=== PATIENT | female | born 1990 | race Caucasian/White ===

== ENCOUNTER → 2024-06-28 | Outpatient (CLI) | payer OTHER, SELFPAY ==
[2024-06-28 11:34] LABS: Misc Send Out* See Sep Rpt
[2024-06-28 12:29] LABS: Basophils # (Auto) 0.1 Thou/mm3 (0.0-0.2); Basophils % (Auto) 1 % (0-2.5); Eosinophils # (Auto) 0.1 Thou/mm3 (0.0-0.5); Eosinophils % (Auto) 1 % (0-10); Hematocrit 40.7 % (36.0-46.0); Hemoglobin 12.5 g/dL (12.0-16.0); Immature Granulocytes % (Auto) 0 % (0-0); Immature Granulocytes Auto 0.03 Thou/mm3 (0.00-0.00); Lymphocytes # (Auto) 2.3 Thou/mm3 (1.0-4.8); Lymphocytes % (Auto) 26 % (10-50); Mean Corpuscular HGB Conc 30.7 g/dl (31.0-37.0); Mean Corpuscular Hemoglobin 18.3 pg (25.0-35.0); Mean Corpuscular Volume 60 fL (80-100); Monocytes # (Auto) 0.6 Thou/mm3 (0.0-0.8); Monocytes % (Auto) 7 % (0-12); Neutrophils # (Auto) 5.8 Thou/mm3 (1.8-7.7); Neutrophils % (Auto) 65 % (37-80); Nucleated Red Blood Cell % 0 /100 WBC (0); Platelet Count 385 Thou/mm3 (140-440); RDW Standard Deviation 34.3 fL (36.4-46.3); Red Blood Count 6.82 Miln/mm3 (4.00-5.20); White Blood Count 8.9 Thou/mm3 (3.6-11.0)
[2024-06-28 12:41] LABS: Folate 15.19 ng/mL (>5.38); Vitamin B12 409 pg/mL (211-911)
[2024-06-28 13:01] LABS: Ferritin 41 ng/mL (7.3-270.7); Total Iron Binding Capacity 364 mcg/dL (250-425)
[2024-06-28 13:12] LABS: Iron 58 mcg/dL (50-170); Percent Iron Saturation 15 % (20-55); Unsaturated Iron Binding 306 (225-295)
[2024-06-28 18:14] LABS: RA Screen Negative (Negative)
[2024-07-04 06:47] LABS: PTT-LA Screen 30 seconds (< OR = 40)
[2024-07-04 06:48] LABS: dRVVT Screen 35 seconds (< OR = 45)
[2024-07-11 11:18] LABS: Immunoglobulin A 292 mg/dL (47-310); Immunoglobulin G 920 mg/dL (600-1640)
[2024-07-12 06:14] LABS: ANA Pattern NUCLEAR, NUCLEOLAR; ANA Screen, IFA POSITIVE (NEGATIVE); ANA Titer 1:40 titer; Immunoglobulin M 133 mg/dL (50-300)
== END | disposition home or self-care (01) ==
LOC: SCTO 11:07
PROVIDERS: PCP Internal Medicine; Referring Provider Internal Medicine Hematology & Oncology; Visit Provider Internal Medicine Hematology & Oncology
DX: D75.9 Disease of blood and blood-forming organs, unspecified (principal)
CPT/HCPCS: 36415; 82607; 82728; 82746; 82784; 83020; 83540; 83550; 85014; 85018; 85025; 85041; 85613; 85730; 86038; 86039; 86430

== ENCOUNTER 2024-07-18 14:47 | Outpatient (RCR) | payer OTHER, SELFPAY ==
--- NOTE | 2024-07-04 17:19 | CTCCONSULT_ITS ---
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 Patient wa s diagnosed with a diabetes and started on Mounjaro. Patient also have depression and bipolar disord er. Patient also have chronic pain condition which she attributes to lupus and requesting referral t o pain management. Patient on vitamin B and D supplements. Patient have anxiety and ADHD. No family history of thalassemia. She also have EDS. No family history of similar disease. 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 - No Nipple discharge - No Gynecological Note - LAST PAP IN [place] 2 YEARS AGO Gynecological Note 2 - 1 MISCARRIAGE IN 2016 MEDICATIONS: Mounjaro [tirzepatide] AdderalL [dextroamphetamine sulf-saccharate/amphetamine sulf-aspartate] naproxen Vitamin D2 [ergocalciferol (vitamin d2)] ALLERGIES: No Known Allergies REVIEW OF SYSTEMS PATIENT FINANCIAL SPECIALIST: No headache, seizures or blurring of vision. GI: No nausea, vomiting, diarrhea or constipation. CVS: No palpitations or angina pains. Respiratory: No cough, chest pain or shortness of breath. VITAL SIGNS: Date 06/28/2024 Time 9:32 AM Vital Signs, Weight and PS ? ??T (F) (F) 98.7 ??P 107 ??B/P (mmHg) 152/91 ??Height (in) (inch) 74 ??Weight (lb) (lb) 210 ??BSA(D) (m*2) 2.22 PHYSICAL EXAMINATION: Conjunctivae is white. Oral cavity is dry. Chest is clear to auscultation. No wheezes or rales audible. CVS: Rhythm regular, no murmurs or gallops present. Abdomen is soft. No hepatosplenomegaly. Extremities: No pedal edema or cyanosis. LABORATORY DATA: Date 06/28/2024 Time 11:30 AM CBC ? ??RED BLOOD COUNT (Miln/mm3) [C] 6.82 H ??MCV (MEAN CORPUSCULAR VOL) (fl) [C] 60 L ??MCH (MEAN CORPUSCULAR HGB) (pg) [C] 18.3 L ??MCHC (MEAN CORPSCULR HGB CONC) (gm/dl) [C] 30.7 L ??RDW (RBC DISTRIBUTION WDTH) SD (fl) [C] 34.3 L ??IMMATURE GRANULOCYTES, AUTO (Thou/mm3) . 0.03 H Additional Labs ? ??UNBOUND IBC (mcg/dL) 306 H ? ??Initials ZZZ Other Labs ? ??Percent Iron Saturation (%) 15 L ASSESSMENT: Blood dyscrasias PLAN: ??Ordered blood labs including hemoglobin electrophoresis Follow-up on the labs in 2 to 3 weeks Will get MRI of the brain with contrast as patient is having multiple episodes of headache and nausea Also referral placed to pain management ORDERS: Comprehensive Metabolic Panel - 12 + CBC with Auto Diff + MD Follow Up 2 Week Iron Panel + Ferritin + Vitamin B-12 + Folic Acid; Serum Hemoglobin Electrophoresis MRI + With Contrast + Brain Quant Immunoglobulins HUDSON - Antinuclear Antibody + Lupus anticoagulant panel + Rheumatoid Factor RETURN TO CLINIC: cc: Jarett Flynn, Referring: Josefa Flynn Electronically Signed {Object.Sanct_Date} at {Object.Sanct_Time} {Object.Sanct_ID*PnP.NameFL@M}, {Object.Sanct_ID*PnP.Suffix@U} Patient: SUKHI BUI : 1990 MR#: [id number] Account: [id number] FOLLOW UP NOTE Page 4 of 4
== END 2024-07-22 23:59 | disposition home or self-care (01) ==
LOC: SCTC 14:47
PROVIDERS: PCP Nurse Practitioner Family; Referring Provider Nurse Practitioner Family; Visit Provider Radiology Therapeutic Radiology
DX: D75.9 Disease of blood and blood-forming organs, unspecified (principal); E11.9 Type 2 diabetes mellitus without complications; F31.9 Bipolar disorder, unspecified; F41.9 Anxiety disorder, unspecified; F90.9 Attention-deficit hyperactivity disorder, unspecified type; R51.9 Headache, unspecified; R42 Dizziness and giddiness
CPT/HCPCS: 99212; 99213; G0463

== ENCOUNTER → 2024-08-03 | Outpatient (CLI) | payer OTHER, SELFPAY ==
[2024-08-02 08:42] LABS: HCG Qualitative,Urine Negative
--- NOTE | 2024-08-03 07:30 | XR_ITS ---
Examination: MRI brain with intravenous contrast Technique: Multiple axial sagittal coronal brain MRI images post intravenous administration 19 cc gadolinium Indications: Disease of blood and blood forming organisms, unspecified, multiple falls and dizziness over the last year with headaches and balance issues altered mental status Exam date and time: August 03, 2024 0734 hrs. Findings: Ventricles are normal in size and configuration No mass effect upon the ventricular system No effacement cortical sulcal markings No abnormal enhancing cerebellar or cerebral lesions Pituitary is not enlarged Normal position cerebellar tonsils No displacement of the optic chiasm Impression: No abnormal enhancing cerebellar or cerebral lesions
== END | disposition home or self-care (01) ==
LOC: SMRI 06:59
PROVIDERS: PCP Internal Medicine; Referring Provider Internal Medicine Hematology & Oncology; Visit Provider Internal Medicine Hematology & Oncology
DX: D75.9 Disease of blood and blood-forming organs, unspecified (principal); Z32.00 Encounter for pregnancy test, result unknown
CPT/HCPCS: 70552; 81025; A9579

== ENCOUNTER 2024-08-21 10:53 | Outpatient (RCR) | payer OTHER, SELFPAY ==
--- NOTE | 2024-08-20 23:21 | CTCFLWUP_ITS ---
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 Patient wa s diagnosed with a diabetes and started on Mounjaro. Patient also have depression and bipolar disord er. Patient also have chronic pain condition which she attributes to lupus and requesting referral t o pain management. Patient on vitamin B and D supplements. Patient have anxiety and ADHD. No family history of thalassemia. She also have EDS. No family history of similar disease. 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 - No Nipple discharge - No Gynecological Note - LAST PAP IN [place] 2 YEARS AGO Gynecological Note 2 - 1 MISCARRIAGE IN 2016 MEDICATIONS: 1. AdderalL - 30 mg 1 tab Daily 2. hydrocodone-acetaminophen - 5-325 mg 1 tab q6 3. Mounjaro - 12.5 mg/0.5 mL Weekly 4. naproxen - 500 mg 1 tab As needed 5. Vitamin D2 - 1,000 unit 1 Capsule Daily Medications Last Reconciled by Tania Breaux MA on 08/02/2024 ALLERGIES: No Known Allergies REVIEW OF SYSTEMS: A complete 14-point review of systems was performed and is negative except as noted in interval histo ry. PHYSICAL EXAMINATION: VITAL SIGNS: Temperature?98, B/P?132/96, Oxygen?Saturation?100% Weight?214?lbs (Change?since?07/18/24 :?-1?lbs) PAIN: 7 - Between severe and very severe pain ECOG Performance Status: 0 - Asymptomatic and fully active GENERAL APPEARANCE: Appears well, in no apparent distress, appropriately interactive. HEENT: Normocephalic, no temporal wasting, normal conjunctiva, no scleral icterus, normal hearing, li ps without lesions, neck normal range of motion. CARDIOVASCULAR: Not assessed. PULMONARY: Normal respiratory effort, no respiratory distress or use of accessory muscles, speaking i n full sentences, no tachypnea. EXTREMITIES: No pedal edema or cyanosis. SKIN: Normal skin appearance. NEUROLOGIC: Alert and oriented x4. PSHYCHIATRIC: Appropriate affect, mood normal, behavior normal, intact thought and speech. LABORATORY DATA: I have personally reviewed and interpreted each of the patient?s relevant lab tests, abnormal finding s are below: Date 06/28/24 ??WHITE?BLOOD?COUNT?(Thou/mm3) 8.9 ??RED?BLOOD?COUNT?(Miln/mm3) 6.82?H ??HEMOGLOBIN?(gm/dl) 12.5 ??HEMATOCRIT?(%) 40.7 ??PLATELET?COUNT?(Thou/mm3) 385 ??NEUTROPHILS?%,?AUTO?(%) 65 ??LYMPH?%,?AUTO?(%) 26 ??NEUTROPHILS,?AUTO?(Thou/mm3) 5.8 ASSESSMENT/PLAN: Blood dyscrasias ??Ordered blood labs including hemoglobin electrophoresis Follow-up on the labs in 2 to 3 weeks MRI brain negative for any cerebellar or cerebral disease Follows with Dr. Ventura for her pain management Patient do not have results of hemoglobin after pheresis HUDSON was positive Patient have multifactorial symptoms and will refer to rheumatology to evaluate for SLE CBC CMP RETURN TO CLINIC: Get results for hemoglobin electrophoresis and RTC in 4 weeks BILLING AND COMPLIANCE: I reviewed external records from providers outside my specialty as summarized above. I spent a total of 50 minutes on this patient?s care on the day of their visit excluding time spent related to any bi lled procedures. This time includes time spent with the patient as well as time spent documenting in the medical record, reviewing patients records and tests, obtaining history, placing orders, communi cating with other healthcare professionals, counseling the patient, family or caregiver, and/or care coordination for the diagnoses above. Electronically Signed by: Aman Ernandez MD T: 11:19 PM CC: Josefa?Gee,? PCP: Lupe Hartley Referring: Josefa Flynn This document was completed utilizing speech recognition software. Grammatical errors, random word in sertions, pronoun errors, and incomplete sentences are an occasional consequence of this system due t o software limitations, ambient noise, and hardware issues. Any formal questions or concerns about th e content, text or information contained within the body of this dictation should be directly address ed to the provider for clarification.
--- NOTE | 2024-08-21 15:40 | CTCFLWUP_ITS ---
Patient: SUKHI BUI : 1990 Page 2 of 2 FOLLOW UP NOTE DATE OF SERVICE: 08/21/2024 NAME: SUKHI BUI ACCOUNT: [id number] : 1990 AGE: 34 INTERVAL HISTORY: Cont to have pain in back . Patient states she is recently diagnosed with more issues in her bones in the lower part of the spine. Patient have not seen supervisor color paste mixing. Patient have not completed he moglobin extra pheresis. Patient is concerned that her bones may be weak. She always gets very achy and have been after walking for few minutes. She has been off work and feel more well rested and has been sleeping better. Patient is also very h appy that she was able to see Dr. Ventura for pain management. 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 Patient wa s diagnosed with a diabetes and started on Mounjaro. Patient also have depression and bipolar disord er. Patient also have chronic pain condition which she attributes to lupus and requesting referral t o pain management. Patient on vitamin B and D supplements. Patient have anxiety and ADHD. No family history of thalassemia. She also have EDS. No family history of similar disease. 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 - No Nipple discharge - No Gynecological Note - LAST PAP IN [place] 2 YEARS AGO Gynecological Note 2 - 1 MISCARRIAGE IN 2016 MEDICATIONS: 1. AdderalL - 30 mg 1 tab Daily 2. hydrocodone-acetaminophen - 5-325 mg 1 tab q6 3. Mounjaro - 12.5 mg/0.5 mL Weekly 4. naproxen - 500 mg 1 tab As needed 5. Vitamin D2 - 1,000 unit 1 Capsule Daily Medications Last Reconciled by Crystal Mott MA on 08/21/2024 ALLERGIES: No Known Allergies REVIEW OF SYSTEMS: A complete 14-point review of systems was performed and is negative except as noted in interval histo ry. PHYSICAL EXAMINATION: VITAL SIGNS: Temperature?98.1, B/P?134/97, Oxygen?Saturation?99% Weight?221?lbs (Change?since? 4:?7?lbs) PAIN: 0 - No pain ECOG Performance Status: 1 - Symptomatic; ambulatory; restricted in strenuous activity GENERAL APPEARANCE: Appears well, in no apparent distress, appropriately interactive. HEENT: Normocephalic, no temporal wasting, normal conjunctiva, no scleral icterus, normal hearing, li ps without lesions, neck normal range of motion. CARDIOVASCULAR: Not assessed. PULMONARY: Normal respiratory effort, no respiratory distress or use of accessory muscles, speaking i n full sentences, no tachypnea. EXTREMITIES: No pedal edema or cyanosis. SKIN: Normal skin appearance. NEUROLOGIC: Alert and oriented x4. PSHYCHIATRIC: Appropriate affect, mood normal, behavior normal, intact thought and speech. LABORATORY DATA: I have personally reviewed and interpreted each of the patient?s relevant lab tests, abnormal finding s are below: Date 06/28/24 ??WHITE?BLOOD?COUNT?(Thou/mm3) 8.9 ??RED?BLOOD?COUNT?(Miln/mm3) 6.82?H ??HEMOGLOBIN?(gm/dl) 12.5 ??HEMATOCRIT?(%) 40.7 ??PLATELET?COUNT?(Thou/mm3) 385 ??NEUTROPHILS?%,?AUTO?(%) 65 ??LYMPH?%,?AUTO?(%) 26 ??NEUTROPHILS,?AUTO?(Thou/mm3) 5.8 ASSESSMENT/PLAN: Blood dyscrasias ??Ordered blood labs including hemoglobin electrophoresis and advised patient to complete them Follow-up on the labs in 2 to 3 weeks MRI brain negative for any cerebellar or cerebral disease Follows with Dr. Ventura for her pain management Patient do not have results of hemoglobin after pheresis HUDSON was positive Patient have multifactorial symptoms and will refer to rheumatology to evaluate for SLE CBC CMP CBC CMP bone density scan RETURN TO CLINIC: I will see her back in the clinic in 3 months. BILLING AND COMPLIANCE: I reviewed external records from providers outside my specialty as summarized above. I spent a total of 50 minutes on this patient?s care on the day of their visit excluding time spent related to any bi lled procedures. This time includes time spent with the patient as well as time spent documenting in the medical record, reviewing patients records and tests, obtaining history, placing orders, communi cating with other healthcare professionals, counseling the patient, family or caregiver, and/or care coordination for the diagnoses above. Electronically Signed by: Aman Ernandez MD T: 3:38 PM CC: Josefa?Gee,? PCP: Lupe Hartley Referring: Lupe Hartley This document was completed utilizing speech recognition software. Grammatical errors, random word in sertions, pronoun errors, and incomplete sentences are an occasional consequence of this system due t o software limitations, ambient noise, and hardware issues. Any formal questions or concerns about th e content, text or information contained within the body of this dictation should be directly address ed to the provider for clarification.
== END 2024-08-22 23:59 | disposition home or self-care (01) ==
LOC: SCTC 10:53
PROVIDERS: PCP Internal Medicine; Referring Provider Internal Medicine; Visit Provider Internal Medicine Hematology & Oncology
DX: D75.9 Disease of blood and blood-forming organs, unspecified (principal); M54.9 Dorsalgia, unspecified; E11.9 Type 2 diabetes mellitus without complications; Z79.85 Long-term (current) use of injectable non-insulin antidiabetic drugs; F31.9 Bipolar disorder, unspecified
CPT/HCPCS: 99212; Q3014; G0463

== ENCOUNTER → 2024-09-29 | Outpatient (CLI) | payer OTHER, SELFPAY ==
--- NOTE | 2024-09-29 14:30 | XR_ITS ---
Examination: Bone densitometry Date and time of exam:September 29, 2024 1501 hours INDICATIONS: Premenopausal, vitamin D 3 years, diabetic Technique: Lumbar spine and hip total bone mineralization values of an calculated. Peak reference and age match control results have been displayed. Findings: Lumbar spine total bone mineralization is1.144 gm/cm2. This is 0.9 standard deviations above peak reference. This is 0.9 standard deviations above age-matched controls. Hip total bone mineralization is 0.849 gm/cm2 This is 0.8 standard deviations below peak reference. This is a 7 standard deviations below age-matched controls Impression: There is normal mineralization based on lumbar spine measurements. There is osteopenia based on hip measurements
== END | disposition home or self-care (01) ==
LOC: CDIM 14:39
PROVIDERS: Referring Provider Internal Medicine Hematology & Oncology; Visit Provider Internal Medicine Hematology & Oncology
DX: M85.88 Other specified disorders of bone density and structure, other site (principal)
CPT/HCPCS: 77080

== ENCOUNTER 2024-10-19 15:09 | Outpatient (RCR) | payer OTHER, SELFPAY ==
--- NOTE | 2024-10-18 15:47 | CTCFLWUP_ITS ---
[facility] [address] [place], [place] [address] FOLLOW-UP NOTE Date: 10/18/2024 MR#: [id number] Name: SUKHI BUI : 1990 Dx: D75.9 Disease of blood and blood-forming organs, unspecified Identification. Patient with blood dyscrasia being followed by Dr. Ernandez seamer elastic band. Also has chronic pain in her bones in the lower part of her spine. Other comorbidities diabetes type 2 ADHD beta thalassemia diverticulosis multiple synostosis bilateral foot surgery at 15 years and ear surgeries in [place]. Most recently had MRI of the brain which was negative. 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 Currently on [place] 5 every 6 as needed but takes it sparingly. Unable to take NSAIDs due to GI toxicity and OTC meds ineffective. Patient takes [place] Sur only 1 tablet a day, and in fact ran out without calling for refill 3 weeks ago. Told her that we can renew this as she is taking this sparingly. Cures website checked; side effects discussed. Electronically signed by: Scottie Ventura M.D. 10/18/2024 3:45 PM
--- NOTE | 2024-10-23 00:09 | CTCFLWUP_ITS ---
Patient: SUKHI BUI : 1990 Page 2 of 3 FOLLOW UP NOTE DATE OF SERVICE: 10/19/2024 NAME: SUKHI BUI ACCOUNT: [id number] : 1990 AGE: 34 INTERVAL HISTORY: Patient is very happy with her care overall. Her pain is well-controlled patient have not seen fourth hand. Patient have not completed hemoglobin extra pheresis. Patient is concerned that her bones may be weak. She always gets very achy and have been after walking for few minutes. She has been off work and feel more well rested and has been sleeping better. 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 Patient was diagnosed with a diabetes and started on Mounjaro. Patient also have depression and bipolar disorder. Patient also have chronic pain condition which she attributes to lupus and requesting referral to pain management. Patient on vitamin B and D supplements. Patient have anxiety and ADHD. No family history of thalassemia. She also have EDS. No family history of similar disease. 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 - No Nipple discharge - No Gynecological Note - LAST PAP IN [place] 2 YEARS AGO Gynecological Note 2 - 1 MISCARRIAGE IN 2016 MEDICATIONS: 1. AdderalL - 30 mg 1 tab Daily 2. alendronate - 70 mg Weekly 3. alendronate - 70 mg 1 tab weekly 4. hydrocodone-acetaminophen - 5-325 mg 1 tab twice a day 5. Mounjaro - 12.5 mg/0.5 mL Weekly 6. naproxen - 500 mg 1 tab As needed 7. Vitamin D2 - 1,000 unit 1 Capsule Daily?Palabra Meds? Medications Last Reconciled by Crystal Mott MA on 10/19/2024 ALLERGIES: No Known Allergies REVIEW OF SYSTEMS: A complete 14-point review of systems was performed and is negative except as noted in interval history. PHYSICAL EXAMINATION:?Saul PE? VITAL SIGNS: Temperature?97.6, B/P?119/83, Oxygen?Saturation?100% Weight?212?lbs (Change?since?10/18/24:?-3?lbs) PAIN: 0 - No pain GENERAL APPEARANCE: Appears well, in no apparent distress, appropriately interactive. HEENT: Normocephalic, no temporal wasting, normal conjunctiva, no scleral icterus, normal hearing, lips without lesions, neck normal range of motion. CARDIOVASCULAR: Not assessed. PULMONARY: Normal respiratory effort, no respiratory distress or use of accessory muscles, speaking in full sentences, no tachypnea. EXTREMITIES: No pedal edema or cyanosis. SKIN: Normal skin appearance. NEUROLOGIC: Alert and oriented x4. PSHYCHIATRIC: Appropriate affect, mood normal, behavior normal, intact thought and speech. LABORATORY DATA: I have personally reviewed and interpreted each of the patient?s relevant lab tests, abnormal findings are below: Date 06/28/24 ??WHITE?BLOOD?COUNT?(Thou/mm3) 8.9 ??RED?BLOOD?COUNT?(Miln/mm3) 6.82?H ??HEMOGLOBIN?(gm/dl) 12.5 ??HEMATOCRIT?(%) 40.7 ??PLATELET?COUNT?(Thou/mm3) 385 ??NEUTROPHILS?%,?AUTO?(%) 65 ??LYMPH?%,?AUTO?(%) 26 ??NEUTROPHILS,?AUTO?(Thou/mm3) 5.8 ASSESSMENT/PLAN:?Sual Ernandez Assessment/Plan? Blood dyscrasias ??Ordered blood labs including hemoglobin electrophoresis and advised patient to complete them Follow-up on the labs in 2 to 3 weeks MRI brain negative for any cerebellar or cerebral disease Follows with Dr. Ventura for her pain management Patient do not have results of hemoglobin after pheresis HUDSON was positive Patient have multifactorial symptoms and will refer to rheumatology to evaluate for SLE CBC CMP CBC CMP bone density scan Bone density shows osteopenia in the hips Will start Zometa every 6 months after dental clearance ORDERS: Zometa orders CBC CMP RETURN TO CLINIC: I will see her back in the clinic in 6 month. BILLING AND COMPLIANCE: I reviewed external records from providers outside my specialty as summarized above. I spent a total of 50 minutes on this patient?s care on the day of their visit excluding time spent related to any billed procedures. This time includes time spent with the patient as well as time spent documenting in the medical record, reviewing patients records and tests, obtaining history, placing orders, communicating with other healthcare professionals, counseling the patient, family or caregiver, and/or care coordination for the diagnoses above. Electronically Signed by: Aman Ernandez MD T: 12:07 AM CC: Josefa?Gee,? PCP: Scottie Ventura Referring: Scottie Ventura This document was completed utilizing speech recognition software. Grammatical errors, random word insertions, pronoun errors, and incomplete sentences are an occasional consequence of this system due to software limitations, ambient noise, and hardware issues. Any formal questions or concerns about the content, text or information contained within the body of this dictation should be directly addressed to the provider for clarification.
== END 2024-10-20 23:59 | disposition home or self-care (01) ==
LOC: SCTC 15:09
PROVIDERS: PCP Internal Medicine; Referring Provider Radiology Therapeutic Radiology; Visit Provider Internal Medicine Hematology & Oncology
DX: D75.9 Disease of blood and blood-forming organs, unspecified (principal); E11.9 Type 2 diabetes mellitus without complications; F90.9 Attention-deficit hyperactivity disorder, unspecified type; M85.88 Other specified disorders of bone density and structure, other site; G89.29 Other chronic pain
CPT/HCPCS: 99212; 99213; G0463

== ENCOUNTER → 2024-12-12 | Outpatient (CLI) | payer OTHER, SELFPAY ==
[2024-12-12 07:23] LABS: Misc Send Out* See Sep Rpt
[2024-12-12 07:52] LABS: Collection Type, Urine Clean Catch; WBC,Urine 0 /hpf (0-5)
[2024-12-12 09:03] LABS: Bilirubin,Urine Negative (Negative); Blood,Urine Negative (Negative); Clarity,Urine Clear (Clear/Hazy); Color,Urine Lt-Yellow (Lt Yel-Yel); Culture Indicated,Urine Not Indicated; Glucose, Urine 4+ (Negative); Ketones,Urine Negative (Negative); Leukocyte Esterase,Urine Negative (Negative); Nitrite,Urine Negative (Negative); Protein,Urine Negative (Neg - Trace); RBC,Urine 2 /hpf (0-3); Specific Gravity,Urine 1.024 (1.001-1.035); Squamous Epithelial Cell,Urine < 1 /hpf (0-5); Urobilinogen,Urine Negative mg/dL (0.0-1.0)
[2024-12-12 09:13] LABS: Alanine Aminotransferase 55 U/L (10-49); Aspartate Amino Transferase 37 U/L (0-34); C-Reactive Protein < 0.5 mg/dL (0.0-0.9); Creatinine (Component) 0.8 mg/dL (0.6-1.3); Free T3 3.7 pg/mL (2.3-4.2); eGFR > 60 See Note
[2024-12-12 12:48] LABS: Sed Rate (ESR) 20 mm/hr (0-20)
[2024-12-12 15:30] LABS: RA Screen Negative (Negative)
[2024-12-18 06:46] LABS: PTT-LA Screen 33 seconds (< OR = 40); dRVVT Screen 34 seconds (< OR = 45)
[2024-12-19 03:04] LABS: Albumin 4.6 g/dL (3.8-4.8); Alpha-1-Globulin 0.3 g/dL (0.2-0.3); Alpha-2-Globulin 0.9 g/dL (0.5-0.9); Beta-1-Globulin 0.5 g/dL (0.4-0.6); Beta-2-globulin 0.4 g/dL (0.2-0.5); Gamma Globulin 0.9 g/dL (0.8-1.7); Sjogren's antibody (SS-A) <1.0 NEG AI (<1.0 NEGATIVE); Sm Antibody <1.0 NEG AI (<1.0 NEGATIVE); Thyroglobulin Antibodies <1 IU/mL (< OR = 1)
[2024-12-19 06:24] LABS: ANA Pattern NUCLEAR, NUCLEOLAR; ANA Screen, IFA POSITIVE (NEGATIVE); CCP Antibody (IgG)* <16 Units; Complement Component C3* 175 mg/dL (83-193); Complement Component C4c* 30 mg/dL (15-57); DNA (ds) Antibody* <1 IU/mL; Protein, total, serum 7.6 g/dL (6.1-8.1); Sjogren's Antibody (SS-B) <1.0 NEG AI (<1.0 NEGATIVE); Sm/RNP Antibody <1.0 NEG AI (<1.0 NEGATIVE); Thyroid Peroxidase Antibodies* <1 IU/mL (<9)
== END | disposition home or self-care (01) ==
LOC: COPL 06:57
PROVIDERS: PCP Internal Medicine
DX: R76.8 Other specified abnormal immunological findings in serum (principal)
CPT/HCPCS: 36415; 81001; 82565; 84155; 84165; 84432; 84439; 84450; 84460; 84481; 85613; 85652; 85730; 86038; 86140; 86160; 86200; 86225; 86235; 86334; 86376; 86430; 86800

== ENCOUNTER 2025-01-10 14:59 | Outpatient (RCR) | payer OTHER, SELFPAY ==
--- NOTE | 2025-01-11 14:18 | CTCFLWUP_ITS ---
[facility] [address] [place], [place] [address] FOLLOW-UP NOTE Date: 01/10/2025 MR#: [id number] Name: SUKHI BUI : 1990 Dx: D75.9 Disease of blood and blood-forming organs, unspecified Identification. Patient with blood dyscrasia being followed by Dr. Ernandez clinical trial head, Bone density showing osteopenia plan is for Zometa after dental clearance. Currently taking alendronate Awaiting breast reduction surgery. Refered to tool analyst who is writing various tests Currently taking hydrocodone 5 twice daily. But may need to take some extra on some days where she needs to take it 4 times a day. Takes naproxen with only partial relief. As see patient today she has tenderness in the right shoulder back and wrists bilaterally. Reviewed her pain meds and [employer] website checked. went over side effects of meds and will see her again in 3 months. Electronically signed by: Scottie Ventura M.D. 01/10/2025 4:21 PM
== END 2025-01-20 23:59 | disposition home or self-care (01) ==
LOC: SCTC 14:59
PROVIDERS: PCP Internal Medicine; Referring Provider Internal Medicine; Visit Provider Radiology Therapeutic Radiology
DX: D75.9 Disease of blood and blood-forming organs, unspecified (principal)
CPT/HCPCS: 99213; G0463

== ENCOUNTER → 2025-01-30 | Outpatient (CLI) | payer OTHER, SELFPAY ==
--- NOTE | 2025-01-30 | XR_ITS ---
Examination: Shoulder,right, 3 views Technique: Shoulder AP internal rotation, AP external rotation, Y view shoulder, 3 views Exam date and time :January 30, 2025 1236 hours INDICATIONS: Right shoulder dislocation one year ago with persistent shoulder pain FINDINGS: No fracture or current shoulder dislocation No AC joint separation IMPRESSION: No shoulder fracture or shoulder dislocation
== END | disposition home or self-care (01) ==
PROVIDERS: PCP Internal Medicine; Referring Provider Nurse Practitioner Family; Visit Provider Nurse Practitioner Family
DX: M25.511 Pain in right shoulder (principal)
CPT/HCPCS: 73030

== ENCOUNTER → 2025-03-13 | Outpatient (CLI) | payer OTHER, SELFPAY ==
[2025-03-13 09:26] LABS: C-Reactive Protein 1.0 mg/dL (0.0-0.9)
[2025-03-13 10:17] LABS: Sed Rate (ESR) 17 mm/hr (0-20)
[2025-03-16 06:29] LABS: HLA-B27 Antigen* NEGATIVE (NEGATIVE)
== END | disposition home or self-care (01) ==
LOC: COPL 07:24
PROVIDERS: PCP Internal Medicine Rheumatology; Referring Provider Internal Medicine Rheumatology; Visit Provider Internal Medicine Rheumatology
DX: R76.8 Other specified abnormal immunological findings in serum (principal); M19.90 Unspecified osteoarthritis, unspecified site; M54.41 Lumbago with sciatica, right side; M89.8X0 Other specified disorders of bone, multiple sites; M54.2 Cervicalgia
CPT/HCPCS: 36415; 85652; 86140; 86812

== ENCOUNTER 2025-03-22 13:40 | Outpatient (RCR) | payer OTHER, SELFPAY ==
--- NOTE | 2025-03-21 14:35 | CTCFLWUP_ITS ---
[facility] [address] [place], [place] [address] FOLLOW-UP NOTE Date: 03/21/2025 MR#: [id number] Name: SUKHI BUI : 1990 Dx: D75.9 Disease of blood and blood-forming organs, unspecified Identification. Patient with blood dyscrasia being followed by Dr. Ernandez cigar wrapper. Bone density showing osteopenia plan is for Zometa after dental clearance. Currently taking alendronate. Underwent breast reduction surgery recently and also being followed by insurance office supervisor. Environmental Technical Officer also following patient, with test reportedly not revealing that she has any autoimmune disease according to patient.. Currently taking hydrocodone 5 twice daily which helps with chronic pain. States that for trigeminal neuralgia gabapentin 200 mg has been helpful as well. This being a noncontrolled medication can be prescribed as well. [employer] website checked Electronically signed by: Scottie Ventura M.D. 03/21/2025 2:32 PM
--- NOTE | 2025-03-26 07:00 | CTCFLWUP_ITS ---
Patient: SUKHI BUI : 1990 Page 3 of 4 FOLLOW UP NOTE DATE OF SERVICE: 03/22/2025 NAME: SUKHI BUI ACCOUNT: [id number] : 1990 AGE: 34 INTERVAL HISTORY: Patient is feeling better since the last visit. Patient feels he while taking bisphosphonates for her osteopenia. Patient is also taking calcium and vitamin D3. She has followed with rheumatology. 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 Patient was diagnosed with a diabetes and started on Mounjaro. Patient also have depression and bipolar disorder. Patient also have chronic pain condition which she attributes to lupus and requesting referral to pain management. Patient on vitamin B and D supplements. Patient have anxiety and ADHD. No family history of thalassemia. She also have EDS. No family history of similar disease. OTHER MEDICAL HISTORY/CONDITIONS: DIABETIC TYPE 2 INSOMNIA ADHD ANXIETY BETA THALASSEMIA HEARING LOSS DIVERTICULOSIS MULTIPLE SYNOSTOSES (NETTIE) EAR SURGERIES X6 (2017) IN [place] BILATERAL FOOT SURGERY AT 15 YRS OLD FAMILY HISTORY: Cancer History - Father - FATHER HAS CANCER UNKNOWN TYPE Cancer History - Mother - MOTHER LUPUS DX, MENTAL HEALTH ISSUES Cancer History - Sibling - DENIES Cancer History - Children - PATERNAL COUSIN AT 3 YEARS BETA THALASSEMIA Cancer History - - BETA THALASSEMIA SOCIAL HISTORY: Occupational History - [employer] Education Level - College Graduate, Master's degree Exercise Regularly - Yes 2-3 times a week Marital Status - Cultural/Voodoo Considerati - NONE Tobacco Pack per Day - 0 Tobacco Use Note - NEVER ETOH Use Note - 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 - No Nipple discharge - No Gynecological Note - LAST PAP IN [place] 2 YEARS AGO Gynecological Note 2 - 1 MISCARRIAGE IN 2016 MEDICATIONS: 1. AdderalL - 30 mg 1 tab Daily 2. alendronate - 70 mg Weekly 3. alendronate - 70 mg 1 tab weekly 4. gabapentin - 300 mg 1 Capsule twice a day 5. hydrocodone-acetaminophen - 5-325 mg 1 tab four times a day 6. Mounjaro - 12.5 mg/0.5 mL Weekly 7. naproxen - 500 mg 1 tab As needed 8. Vitamin D2 - 1,000 unit 1 Capsule Daily Medications Last Reconciled by Tania Cordero MD on 03/22/2025 ALLERGIES: No Known Allergies REVIEW OF SYSTEMS: A complete 14-point review of systems was performed and is negative except as noted in interval history. PHYSICAL EXAMINATION: VITAL SIGNS: Temperature?98.2, B/P?144/82, Oxygen?Saturation?98% Weight?214?lbs (Change?since?03/21/25:?2?lbs) PAIN: 0 - No pain ECOG Performance Status: 0 - Asymptomatic and fully active GENERAL APPEARANCE: Appears well, in no apparent distress, appropriately interactive. HEENT: Normocephalic, no temporal wasting, normal conjunctiva, no scleral icterus, normal hearing, lips without lesions, neck normal range of motion. CARDIOVASCULAR: Not assessed. PULMONARY: Normal respiratory effort, no respiratory distress or use of accessory muscles, speaking in full sentences, no tachypnea. EXTREMITIES: No pedal edema or cyanosis. SKIN: Normal skin appearance. NEUROLOGIC: Alert and oriented x4. PSHYCHIATRIC: Appropriate affect, mood normal, behavior normal, intact thought and speech. LABORATORY DATA: I have personally reviewed and interpreted each of the patient?s relevant lab tests, abnormal findings are below: Date 06/28/24 12/12/24 ??WHITE?BLOOD?COUNT?(Thou/mm3) 8.9 ? ??RED?BLOOD?COUNT?(Miln/mm3) 6.82?H ? ??HEMOGLOBIN?(gm/dl) 12.5 ? ??HEMATOCRIT?(%) 40.7 ? ??PLATELET?COUNT?(Thou/mm3) 385 ? ??NEUTROPHILS?%,?AUTO?(%) 65 ? ??LYMPH?%,?AUTO?(%) 26 ? ??NEUTROPHILS,?AUTO?(Thou/mm3) 5.8 ? ??CREATININE?(mg/dL) ? 0.80 ??CrCl?(CandG)?(ml/min) ? 129.71 ??AST/SGOT?(Unit/L) ? 37?H ??ALT/SGPT?(Unit/L) ? 55?H ASSESSMENT/PLAN: Blood dyscrasias ??Ordered blood labs including hemoglobin electrophoresis and advised patient to complete them Follow-up on the labs in 2 to 3 weeks MRI brain negative for any cerebellar or cerebral disease Follows with Dr. Ventura for her pain management All workup has been negative from hematology point of view Advised to follow-up with primary care and rheumatology Osteopenia Patient has been on calcium vitamin D and bisphosphonate oral Will start Zometa every 6 months after dental clearance ORDERS: Order # Description [id number] MD Follow Up 3 Months [id number] Infusion 1 Hour [id number] MD Follow Up 6 Month [id number] CBC with Auto Diff + Comprehensive Metabolic Panel - 12 RETURN TO CLINIC: I reviewed the diagnosis, prognosis, and recommended treatment/procedure options with the patient (and/or their legal plastic products sales representative), including the potential benefits, risks, side effects and alternative therapies. We also discussed the option of no treatment and the possibility of clinical trial participation, if applicable. All questions were addressed, and they demonstrated understanding. They provided informed consent to proceed with the proposed plan of care. BILLING AND COMPLIANCE: I reviewed external records from providers outside my specialty as summarized above. I spent a total of 50 minutes on this patient?s care on the day of their visit excluding time spent related to any billed procedures. This time includes time spent with the patient as well as time spent documenting in the medical record, reviewing patients records and tests, obtaining history, placing orders, communicating with other healthcare professionals, counseling the patient, family or caregiver, and/or care coordination for the diagnoses above. Electronically Signed by: {Object.Sanct_ID*PnP.NameFL@M}, {Object.Sanct_ID*PnP.Suffix@U} D: {Object.Sanct_Date} T: {Object.Sanct_Time} CC: Josefa?Gee,? PCP: Raymond Handy Referring: Raymond Handy This document was completed utilizing speech recognition software. Grammatical errors, random word insertions, pronoun errors, and incomplete sentences are an occasional consequence of this system due to software limitations, ambient noise, and hardware issues. Any formal questions or concerns about the content, text or information contained within the body of this dictation should be directly addressed to the provider for clarification.
== END 2025-03-22 23:59 | disposition home or self-care (01) ==
LOC: SCTC 13:40
PROVIDERS: PCP Internal Medicine Rheumatology; Referring Provider Internal Medicine Rheumatology; Visit Provider Internal Medicine Hematology & Oncology
DX: D75.9 Disease of blood and blood-forming organs, unspecified (principal); M85.80 Other specified disorders of bone density and structure, unspecified site
CPT/HCPCS: 99212; 99213; G0463

== ENCOUNTER → 2025-03-30 | Outpatient (CLI) | payer OTHER, SELFPAY ==
--- NOTE | 2025-03-30 16:25 | XR_ITS ---
Examination: Bilateral hands, 6 views. Technique: AP, Oblique, Lateral each hand total 6 views Date and time of exam: March 30, 2025, 1630 hours INDICATIONS: Diagnosis multiple synostoses syndrome type I Findings: Mild juxta-articular bone demineralization. No osseous fusions identified involving either hand No fracture is No cortical bone destruction [id number] osteoarthritis left first carpometacarpal joint No erosive arthritis IMPRESSION: No osseous fusions identified involving either hand
--- NOTE | 2025-03-30 16:25 | XR_ITS ---
Examination: Foot bilateral, 4 views Technique: AP, lateral right and left foot. 4 views Date and time: March 30, 2025, 1640 hours INDICATIONS: Diagnosis multiple synostoses syndrome type I FINDINGS: Mild to moderate bilateral bunion deformities. No osseous fusions identified either foot No fracture s No cortical bone destruction Impression: No osseous fusions noted
== END | disposition home or self-care (01) ==
PROVIDERS: PCP Internal Medicine; Referring Provider Physician Assistant; Visit Provider Physician Assistant
DX: M79.641 Pain in right hand (principal); M79.671 Pain in right foot
CPT/HCPCS: 73130; 73620

== ENCOUNTER → 2025-04-20 | Outpatient (CLI) | payer OTHER, SELFPAY ==
--- NOTE | 2025-04-20 13:30 | XR_ITS ---
MRI shoulder, right, without contrast. Date and time: April 20, 2025, 1507 hrs. Indications: Right shoulder pain radiating down the right arm clicking in the joints stiffness beginning 3 years ago Technique: Multiple axial, sagittal and coronal sections of the shoulder have been obtained. Siemens high-resolution 1.5 Rashmi MRI scanner is utilized. Axial fat-suppressed sections, TR 2350, TE 18 T2-weighted coronal fat-saturated images, TR 3500, TE 7100 T1-weighted coronal images, TR 500, TE 15 T2-weighted sagittal fat-saturated images, TR 3500, TE 57 T1-weighted sagittal sections, TR 504, TE 13. Findings: Supraspinatus tendon insertion is intact.. Infraspinatus tendon insertion is intact.. Subscapularis insertion is intact.. Subscapularis bursa is not seen.. Long head of the biceps is in the bicipital groove. No definite tear of the biceps superior labral anchor is seen. Retraction of the musculotendinous junction of the rotator cuff is not seen . Tendinosis pattern is prominent.. Distance between the acromium and humeral head is 6 mm Atrophy of the supraspinatus muscle is mild . Atrophy of the infraspinatus muscle is not seen.. Sagittal sections demonstrate a horizontal acromion. Acromioclavicular joint demonstrates mild osteoarthritis . Osacromiale is not identified. Fraying and irregularity anterior superior labral margins. Bony glenoid fossa on the sagittal sections does not demonstrate osseous defect. Occult fracture or area of avascular necrosis is not seen. Acromioclavicular joint separation is not visible. Defect in the posterolateral margin of the humeral head is not seen Impression: Rotator cuff intact. Prominent rotator cuff tendinosis Fraying and irregularity anterior superior labral margins
== END | disposition home or self-care (01) ==
PROVIDERS: PCP Internal Medicine; Referring Provider Nurse Practitioner Family; Visit Provider Nurse Practitioner Family
DX: M25.811 Other specified joint disorders, right shoulder (principal); M67.813 Other specified disorders of tendon, right shoulder
CPT/HCPCS: 73221

== ENCOUNTER 2025-06-26 08:57 | Outpatient (RCR) | payer OTHER, SELFPAY ==
--- NOTE | 2025-06-26 10:04 | CTCFLWUP_ITS ---
[facility] [address] [place], [place] [address] FOLLOW-UP NOTE Date: 06/26/2025 MR#: [id number] Name: SUKHI BUI : 1990 Dx: D75.9 Disease of blood and blood-forming organs, unspecified Identification. 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 Has had chronic pain, for which patient has been taking ibuprofen 400 mg 3 times daily as needed along with hydrocodone 5 4 times daily as needed and gabapentin 300 mg twice daily as needed. Comorbidities: diabetes type 2 ADHD diverticulosis multiple synostosis. Initially suspected of Lupus being followed by head grease maker, reportedly not and not on any medications for this. Patient went to [facility] ER in [place] 06/20/2025 because of increased pain and apparent weakness and numbness involving upper extremity more than lower extremity and MRI of the C-spine L-spine and T-spine performed Results showed degenerative disc disease moderate narrowing of foramina in multiple sites and mild disc herniation but no other major pathologies. Patient was given prednisone 10 mg for 5 days and told her to take the usual meds including gabapentin. 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 As I see her today patient appears comfortable with obvious gross sensory or motor loss. A#1. History of beta thalassemia being followed by wood carver hand Dr. Ernandez. A#2. Being followed by head grease maker, no definite diagnosis made according to patient. A#3. Chronic pain taking intermittent hydrocodone 5 gabapentin 3 mg twice daily A#4. Recent visit to ER with cervical thoracic lumbar MRI revealing degenerative disc disease narrowing of foramina and mild disc herniation. A#5. Has an intermittent weakness and numbness of extremities and shall refer patient to neurologist. A#6. Has been off work since ER visit of 06/20/2025, appears better with symptoms stabilized. Recommended that patient can return to usual work tomorrow 06/27/2025. A#7. Recommend the patient still be allowed to be accompanied by her service dog. A#8. I will see her again in 3 months time. Cc: Lupe Campo MD Electronically signed by: Scottie Ventura M.D. 06/26/2025 10:01 AM
== END 2025-07-22 23:59 | disposition home or self-care (01) ==
LOC: SCTC 08:57
PROVIDERS: PCP Internal Medicine; Referring Provider Internal Medicine; Visit Provider Radiology Therapeutic Radiology
DX: D56.1 Beta thalassemia (principal); G89.29 Other chronic pain; M51.35 Other intervertebral disc degeneration, thoracolumbar region
CPT/HCPCS: 99213; G0463